=== PATIENT | female | born 1960 | race Caucasian/White ===

== ENCOUNTER → 2016-05-15 | Outpatient (CLI) | payer BC | LOC: MW.LAB 07:30 | PROVIDERS: ATTEND Internal Medicine Endocrinology, Diabetes & Metabolism | DX: E06.3 Autoimmune thyroiditis (principal); R73.01 Impaired fasting glucose; E78.5 Hyperlipidemia, unspecified | CPT/HCPCS: 36415; 80061; 83036; 84439; 84443 ==

== ENCOUNTER 2022-10-15 06:03 | Inpatient (IN) | payer BC ==
[2022-10-15] MEDS ORDERED: Sodium Chloride 0.9% 2.5 ML Syringe FLUSH PRN (07:19)
[2022-10-15] MEDS ORDERED: Sodium Chloride 0.9% 10 ML Syringe FLUSH PRN (07:19)
[2022-10-15] MEDS ORDERED: Piperacillin/Tazobactam 3.375 GM in Sodium Chloride 0.9% 100 ML IV ONE (07:19)
[2022-10-15] MEDS ORDERED: Sodium Chloride 0.9% 1,000 ML IV ONE (07:19)
[2022-10-15] MEDS ORDERED: Acetaminophen/HYDROcodone 325-5 MG Tab PO ONE (07:21)
[2022-10-15 07:40] LABS: BASOPHILS PERCENT AUTO 0.1 % (0.0-1.5); HEMOGLOBIN 14.4 g/dL (12.0-16.0); LYMPHOCYTES ABSOLUTE AUTO 0.9 K/uL (0.6-2.4); LYMPHOCYTES PERCENT AUTO 9.5 % (16.0-40.0); MEAN CORPUSCULAR HEMOGLOBIN 32.1 pg (27.0-32.0); MEAN CORPUSCULAR HGB CONC 34.3 g/dL (31.0-37.0); MEAN CORPUSCULAR VOLUME 93.5 fL (80.0-98.0); MONOCYTES ABSOLUTE AUTO 0.4 K/uL (0.0-0.8); MONOCYTES PERCENT AUTO 4.3 % (0.0-15.0); NEUTROPHILS PERCENT AUTO 86.1 % (48.0-80.0); NRBC ABSOLUTE 0 K/uL; PLATELET COUNT,PLT 235 K/uL (150-400); RED BLOOD CELL COUNT 4.49 M/uL (4.30-5.90); WHITE BLOOD CELL COUNT,WBC 9.32 K/uL (4.0-11.0)
[2022-10-15] MEDS ORDERED: Ondansetron 4 MG Tab.DIS PO ONE (07:40)
[2022-10-15] MEDS ORDERED: Ondansetron 4 MG/2 ML SDV IVPUSH ONE (07:42)
[2022-10-15 08:10] LABS: A/G RATIO 0.8 (0.9-1.6); ALBUMIN 3.5 g/dL (3.4-5.0); BILIRUBIN TOTAL 0.8 mg/dL (0.2-1.0); CALCIUM 9.2 mg/dL (8.5-10.1); CARBON DIOXIDE,CO2 27.2 mmol/L (21.0-32.0); CREATININE 0.7 mg/dL (0.6-1.0); EST CRCL DRUG DOSING (CG) 68.05 mL/min; PROTEIN TOTAL,TP 7.7 g/dL (6.4-8.2)
[2022-10-15 08:15] LABS: LACTIC ACID 0.8 mmol/L (0.4-2.0)
[2022-10-15] MEDS ORDERED: Iopamidol 755 Mg/ML 100 ML Bottle IVPUSH ONE (10:22)
[2022-10-15] MEDS ORDERED: Ofloxacin 0.3% Ophth Soln 5 ML Bottle EARRT ONE (11:12)
[2022-10-15] MEDS ORDERED: Acetaminophen 325 MG Tab PO PRN (11:16)
[2022-10-15] MEDS ORDERED: Albuterol/Ipratropium 3.0-0.5 MG/3 ML Neb Soln NEB PRN (11:16)
[2022-10-15] MEDS: Ondansetron 4 MG/2 ML SDV IVPUSH PRN ×2 (12:04→18:02)
[2022-10-15] MEDS: oxyCODONE 5 MG Tab PO PRN ×2 (12:04→20:43)
[2022-10-15] MEDS: Piperacillin/Tazobactam 4.5 GM in Sodium Chloride 0.9% 100 ML IV SCH ×3 (12:09→23:09)
[2022-10-15] MEDS ORDERED: Levothyroxine 50 MCG Tab PO SCH (14:30)
[2022-10-15] MEDS: Enoxaparin 40 MG/0.4 ML Syringe SUBCUT SCH (17:57)
[2022-10-15] MEDS: PROGESTERONE MICRONIZED 100 MG PO SCH (20:44)
[2022-10-15] MEDS: LEVOTHYROXINE 50 MCG PO SCH (20:44)
[2022-10-15] MEDS: Ofloxacin 0.3% Ophth Soln 5 ML Bottle EARRT SCH (20:44)
[2022-10-16] MEDS: Piperacillin/Tazobactam 4.5 GM in Sodium Chloride 0.9% 100 ML IV SCH ×4 (05:29→23:22)
[2022-10-16 06:00] LABS: BASOPHILS PERCENT AUTO 0.1 % (0.0-1.5); HEMATOCRIT 36.9 % (36.0-46.0); HEMOGLOBIN 12.2 g/dL (12.0-16.0); LYMPHOCYTES ABSOLUTE AUTO 1.1 K/uL (0.6-2.4); LYMPHOCYTES PERCENT AUTO 12.2 % (16.0-40.0); MEAN CORPUSCULAR HEMOGLOBIN 31.2 pg (27.0-32.0); MEAN CORPUSCULAR HGB CONC 33.1 g/dL (31.0-37.0); MEAN CORPUSCULAR VOLUME 94.4 fL (80.0-98.0); MONOCYTES ABSOLUTE AUTO 0.6 K/uL (0.0-0.8); NEUTROPHILS ABSOLUTE AUTO 7.1 K/uL (1.4-5.7); NEUTROPHILS PERCENT AUTO 80.7 % (48.0-80.0); NRBC ABSOLUTE 0 K/uL; PLATELET COUNT,PLT 202 K/uL (150-400); RED BLOOD CELL COUNT 3.91 M/uL (4.30-5.90); WHITE BLOOD CELL COUNT,WBC 8.84 K/uL (4.0-11.0)
[2022-10-16 06:24] LABS: CALCIUM 8.1 mg/dL (8.5-10.1); CARBON DIOXIDE,CO2 23.6 mmol/L (21.0-32.0); CREATININE 0.7 mg/dL (0.6-1.0); EST CRCL DRUG DOSING (CG) 68.05 mL/min; MAGNESIUM 1.7 mg/dL (1.8-2.4); POTASSIUM,K 3.7 mmol/L (3.5-5.1)
[2022-10-16 06:45] LABS: C-REACTIVE PROTEIN 45.7 mg/dL (0.00-0.90)
[2022-10-16] MEDS: Ofloxacin 0.3% Ophth Soln 5 ML Bottle EARRT SCH ×2 (09:08→21:15)
[2022-10-16] MEDS ORDERED: Magnesium Oxide 400 MG Tab PO ONE (09:23)
[2022-10-16] MEDS: Ketorolac 30 MG/ML SDV IVPUSH SCH ×2 (09:59→17:29)
[2022-10-16] MEDS: Enoxaparin 40 MG/0.4 ML Syringe SUBCUT SCH (17:35)
[2022-10-16] MEDS: Polyethylene Glycol 3350 Powder 17 GM Packet PO PRN (18:46)
[2022-10-16] MEDS: VANCOmycin 1.25 GM/250 ML 1.25 GM in Premix Bag 1 BAG IV SCH (20:09)
[2022-10-16] MEDS: PROGESTERONE MICRONIZED 100 MG PO SCH (21:15)
[2022-10-16] MEDS: LEVOTHYROXINE 50 MCG PO SCH (21:15)
[2022-10-17] MEDS: Ketorolac 30 MG/ML SDV IVPUSH SCH ×3 (01:50→16:47)
[2022-10-17] MEDS: Piperacillin/Tazobactam 4.5 GM in Sodium Chloride 0.9% 100 ML IV SCH ×4 (04:48→22:22)
[2022-10-17 06:43] LABS: BASOPHILS PERCENT AUTO 0.3 % (0.0-1.5); EOSINOPHILS ABSOLUTE AUTO 0.1 K/uL (0.0-0.7); EOSINOPHILS PERCENT AUTO 1.3 % (0.0-7.0); HEMATOCRIT 38.7 % (36.0-46.0); HEMOGLOBIN 13.1 g/dL (12.0-16.0); LYMPHOCYTES ABSOLUTE AUTO 1.1 K/uL (0.6-2.4); LYMPHOCYTES PERCENT AUTO 18.3 % (16.0-40.0); MEAN CORPUSCULAR HEMOGLOBIN 31.6 pg (27.0-32.0); MEAN CORPUSCULAR HGB CONC 33.9 g/dL (31.0-37.0); MEAN CORPUSCULAR VOLUME 93.5 fL (80.0-98.0); MONOCYTES ABSOLUTE AUTO 0.7 K/uL (0.0-0.8); MONOCYTES PERCENT AUTO 10.8 % (0.0-15.0); NEUTROPHILS ABSOLUTE AUTO 4.3 K/uL (1.4-5.7); NEUTROPHILS PERCENT AUTO 69.3 % (48.0-80.0); NRBC ABSOLUTE 0 K/uL; PLATELET COUNT,PLT 224 K/uL (150-400); RED BLOOD CELL COUNT 4.14 M/uL (4.30-5.90); WHITE BLOOD CELL COUNT,WBC 6.19 K/uL (4.0-11.0)
[2022-10-17] MEDS: VANCOmycin 1.25 GM/250 ML 1.25 GM in Premix Bag 1 BAG IV SCH ×2 (07:56→20:24)
[2022-10-17] MEDS: Ofloxacin 0.3% Ophth Soln 5 ML Bottle EARRT SCH ×2 (08:05→20:26)
[2022-10-17] MEDS: Polyethylene Glycol 3350 Powder 17 GM Packet PO PRN (11:26)
[2022-10-17 11:32] LABS: CALCIUM 9.2 mg/dL (8.5-10.1); CARBON DIOXIDE,CO2 25.1 mmol/L (21.0-32.0); CREATININE 0.6 mg/dL (0.6-1.0); EST CRCL DRUG DOSING (CG) 79.39 mL/min; POTASSIUM,K 3.6 mmol/L (3.5-5.1)
[2022-10-17] MEDS: Enoxaparin 40 MG/0.4 ML Syringe SUBCUT SCH (16:47)
[2022-10-17] MEDS: PROGESTERONE MICRONIZED 100 MG PO SCH (20:26)
[2022-10-17] MEDS: LEVOTHYROXINE 50 MCG PO SCH (20:26)
[2022-10-18] MEDS: Piperacillin/Tazobactam 4.5 GM in Sodium Chloride 0.9% 100 ML IV SCH ×2 (04:58→11:41)
[2022-10-18 06:19] LABS: BASOPHILS PERCENT AUTO 0.7 % (0.0-1.5); EOSINOPHILS ABSOLUTE AUTO 0.1 K/uL (0.0-0.7); EOSINOPHILS PERCENT AUTO 2.4 % (0.0-7.0); HEMOGLOBIN 11.7 g/dL (12.0-16.0); LYMPHOCYTES ABSOLUTE AUTO 1.4 K/uL (0.6-2.4); LYMPHOCYTES PERCENT AUTO 33.4 % (16.0-40.0); MEAN CORPUSCULAR HEMOGLOBIN 30.5 pg (27.0-32.0); MEAN CORPUSCULAR HGB CONC 32.5 g/dL (31.0-37.0); MONOCYTES ABSOLUTE AUTO 0.5 K/uL (0.0-0.8); NEUTROPHILS ABSOLUTE AUTO 2.2 K/uL (1.4-5.7); NEUTROPHILS PERCENT AUTO 52.5 % (48.0-80.0); NRBC ABSOLUTE 0 K/uL; PLATELET COUNT,PLT 237 K/uL (150-400); RED BLOOD CELL COUNT 3.83 M/uL (4.30-5.90); WHITE BLOOD CELL COUNT,WBC 4.19 K/uL (4.0-11.0)
[2022-10-18 06:56] LABS: C-REACTIVE PROTEIN 11.2 mg/dL (0.00-0.90); CALCIUM 8.3 mg/dL (8.5-10.1); CREATININE 0.7 mg/dL (0.6-1.0); EST CRCL DRUG DOSING (CG) 68.05 mL/min; POTASSIUM,K 3.5 mmol/L (3.5-5.1)
[2022-10-18] MEDS: Ofloxacin 0.3% Ophth Soln 5 ML Bottle EARRT SCH (08:31)
[2022-10-18] MEDS: VANCOmycin 1.25 GM/250 ML 1.25 GM in Premix Bag 1 BAG IV SCH (08:31)
== END 2022-10-18 14:00 | disposition home or self-care (01) | DRG 115 ==
LOC: MW.ED 06:03 → MW.MS 11:07
PROVIDERS: ADMIT Family Medicine; ATTEND Family Medicine
DX: H60.11 Cellulitis of right external ear (principal); L03.211 Cellulitis of face; E03.9 Hypothyroidism, unspecified; B96.89 Other specified bacterial agents as the cause of diseases classified elsewhere; Z79.899 Other long term (current) drug therapy; Z88.5 Allergy status to narcotic agent; Z79.890 Hormone replacement therapy; Z87.442 Personal history of urinary calculi; Z90.49 Acquired absence of other specified parts of digestive tract; Z98.890 Other specified postprocedural states
CPT/HCPCS: 36415; 70487; 70487-26; 80048; 80053; 80202; 83605; 83735; 85025; 86140; 87040; 87070; 87077; 87154; 87186; 87205; 96365; 96367; 96375; 99284-25; 99285; A9270-GY; J1650; J1885; J2405; J2543; J3370; J3490; J7030; J7050